=== PATIENT | female | born 1945 | race Caucasian/White ===

== ENCOUNTER → 2019-09-09 14:08 | Outpatient (REF) | payer MEDICARE, SELFPAY | LOC: ANHLAB 14:08 | PROVIDERS: PCP Internal Medicine; Visit Provider Nurse Practitioner | DX: D49.2 Neoplasm of unspecified behavior of bone, soft tissue, and skin (principal) | CPT/HCPCS: 88305; 88312 ==

== ENCOUNTER → 2019-10-14 13:57 | Outpatient (REF) | payer MEDICARE, SELFPAY | LOC: ANHLAB 13:57 | PROVIDERS: PCP Internal Medicine; Visit Provider Nurse Practitioner | DX: D49.2 Neoplasm of unspecified behavior of bone, soft tissue, and skin (principal) | CPT/HCPCS: 88305 ==

== ENCOUNTER 2025-04-14 13:56 | Outpatient (CLI) | payer MEDICARE, SELFPAY ==
--- NOTE | ~2025-04-14 | CT_ITS ---
EXAMINATION:CT diagnostic chest wo con DATE: 04/14/2025 14:17 INDICATION: Solitary pulmonary nodule. TECHNIQUE: Computed tomography (CT) of the chest was performed without intravenous contrast. Automated exposure control and iterative reconstruction technique were employed. The dose-length product (DLP) was 519.58 mGy-cm. COMPARISON: PET/CT 08/07/2019, chest CT 05/23/2019 FINDINGS: The lungs demonstrate mild atelectasis. A 16 mm calcified left lower lobe nodule and calcified left hilar lymph nodes are consistent with old granulomatous disease. There are a few scattered chronic pulmonary nodules measuring up to 5 mm, likely benign. There is mosaic attenuation in the lungs, likely small airways disease. No pleural effusion. The heart size is normal. There are coronary artery calcifications. No pericardial effusion. There is severe cervical spondylosis and mild thoracic spondylosis. There is a chronic compression fracture of L1. IMPRESSION: 1. Benign pulmonary nodules. Reviewed, dictated and finalized at location E.
--- OUTSIDE RECORDS SUMMARY | 2025-04-14 15:35 | XMS_ITS | Clinical Summary ---
Author Organization [facility] Address [address] [place] [address] Care Team Providers Care Commercial Manager Name Role Phone Waldemar Galo Primary Care Provider [phone] Allergies Active Allergy Reactions Criticality Noted Date Comments Insulin Degludec Swelling Medium 11/01/2017 Penicillins Hives Medium 11/01/2017 Medications citalopram (CeleXA) 10 mg tablet Take one by mouth one time per day 0 0 7 Active lisinopril (PRINIVIL,ZESTRI L) 20 mg tablet Take one by mouth one time per day 0 0 7 Active pen needle, diabetic (PEN NEEDLE) 31 gauge x 3/16 needle use 4 x a day (8mm pen needles) 400 3 9 Active blood glucose diagnostic (ONETOUCH ULTRA TEST) strip Take as directed 3-4 x daily 300 3 7 Active levothyroxine (SYNTHROID, LEVOTHROID) 125 mcg tablet Take one by mouth one time per day 90 3 0 Active lancets misc Take as directed 200 3 9 Active VITAMIN D2 50,000 unit capsule 0 9 Active insulin glargine (insulin glargine) 100 unit/mL vial for injection Active insulin regular (HumuLIN R, NovoLIN R) 100 unit/mL injection Inject under the skin 3 (three) times a day before meals Sliding scale Active magnesium oxide (MAG-OX) 400 mg (241.3 mg elemental magnesium) tabletIndication s:hypomagnesemia Take 1 tablet (400 mg total) by mouth daily Active melatonin tablet Take 1 tablet (3 mg total) by mouth nightly Active atorvastatin (LIPITOR) 40 mg tabletIndication s:Hyperlipidemia associated with type 2 diabetes mellitus (HCC) Take 1 tablet (40 mg total) by mouth daily 30 tablet 11 9 Active clopidogrel (PLAVIX) 75 mg tabletIndication s:Hypertension associated with diabetes (HCC) Take 1 tablet (75 mg total) by mouth daily 30 tablet 11 9 Active potassium chloride ER 20 mEq CR tablet Take 2 tablets (40 mEq total) by mouth daily 2 Active folic acid (FOLVITE) 1 mg tablet Take 1 tablet (1,000 mcg total) by mouth daily 2 Active carvediloL (COREG) 6.25 mg tablet TAKE 1 TABLET BY MOUTH TWICE DAILY WITH MEALS 180 tablet 4 Active isosorbide mononitrate ER (IMDUR) 30 mg 24 hr tabletIndication s:Pulmonary HTN (HCC),IBRAHIM (dyspnea on exertion) Take 1 tablet by mouth once daily 90 tablet 5 Active Active Problems Problem Noted Date Diagnosed Date Severe obesity 02/18/2025 Morbid (severe) obesity due to excess calories 0 03/14/2022 Bradycardia 09/09/2021 History of stroke 05/21/2019 Complex sleep apnea syndrome 12/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 PND (paroxysmal nocturnal dyspnea) 12/24/2018 Abnormal stress test 12/06/2018 Hypertension associated with diabetes 12/06/2018 Hyperlipidemia associated with type 2 diabetes m ellitus 12/06/2018 IBRAHIM (dyspnea on exertion) 12/06/2018 Pulmonary HTN 12/06/2018 Atypical chest pain 12/06/2018 Nonrheumatic aortic valve stenosis 12/06/2018 Bilateral carotid bruits 12/06/2018 Abnormal mammography 12/04/2018 Hypothyroidism 12/20/2013 Overview (11/08/2016): HYPOTHYROIDISM NOS Hypertension 12/20/2013 Overview (11/09/2016): HYPERTENSION NOS Pure hypercholesterolemia 12/20/2013 Overview (11/09/2016): PURE HYPERCHOLESTEROLEM Type 2 diabetes mellitus 12/20/2013 Overview (11/10/2016): DMII WO CMP UNCNTRLD Morbid obesity 12/20/2013 Overview (11/10/2016): MORBID OBESITY Resolved Problems Problem Noted Date Diagnosed Date Resolved Date Body mass index 40.0-44.9, adult ([facility]) 03/14/2022 04/18/2023 Encounters Date Type Department Care Team Description 04/08/2025 Telephone [facility] Medicine Ophthalmology [facility] [place] [address] Jennie Ameliauriel JASSO - Appointment/Referral 03/27/[address] [facility] Cardiology [address] [facility] [address] [place] [address] Olayinka Rodriguez MD 03/26/2025 Results Follow-Up [facility] Cardiology [address] [facility] [address] [place] [phone] Olayinka Rodriguez MD NM Myocardial Amyloidosis Imaging SPECT/CT 03/25/2025 12:28 PM CDT - 03/25/2025 11:59 PM CDT Hospital Encounter [facility] Radiology [address] [place] [address] Discharge Disposition: Discharge to home or self care 03/25/2025 12:28 PM CDT - 03/25/2025 11:59 PM CDT Hospital Encounter [facility] Radiology 1 [place] [address] Abnormal echocardiogram Discharge Disposition: Discharge to home or self care 03/17/[address] [facility] Cardiology [address] [place] [address] Olayinka Rodriguez MD 03/16/2025 Results Follow-Up [facility] Cardiology at [address] [place] [address] Olayinka Rodriguez MD Transthoracic Echo (TTE) Complete W Doppler/CF 03/11/2025 11:15 AM CDT Ancillary Procedure [facility] Cardiology [address] [facility] [address] [place] [phone] Hypertension associated with diabetes (HCC); Nonrheumatic aortic valve stenosis; Pulmonary HTN (HCC) 02/18/2025 1:45 PM CDT Office Visit [facility] Cardiology [address] [facility] [address] [place] [address] Olayinka Rodriguez MD Hyperlipidemia associated with type 2 diabetes mellitus (HCC) (Primary Dx); Hypertension associated with diabetes (HCC); Nonrheumatic aortic valve stenosis; Pulmonary HTN (HCC); Severe obesity (HCC) from Last 3 Months Surgical History Surgery Date Site/Laterality Comments CATARACT EXTRACTION Cataract extraction Medical History Medical History Date Comments Hypertension Hypertension Diabetes mellitus (HCC) Diabetes Hyperlipidemia Hyperlipidemia Hx Other Medical hysterectomy; C omments: [facility] 08/25/2016 - Malignant neoplasm of uterus (HCC) Cancer, uterine; Comments: [facility] 08/25/2016 - Disorder of thyroid Thyroid dise ase Family History Medical History Relation Name Comments Diabetes Father Diabetes mellit us; Hypertension Father Hypertension; Diabetes Mother Diabetes mellit us; Hypertension Mother Hypertension; Stroke Mother Stroke; Diabetes type II Other 1 Family hist ory of Diabetes -Type II; Diabetes Other 2 sibling Diabetes mellit us; Hypertension Other 2 sibling Hypertension; Migraines Other 2 sibling Migraines; Relation Name Status Comments Father Mother Other 1 Other 2 sibling Social History Tobacco Use Types Packs/Day Years Used Date Smoking Tobacco: Former Cigarettes Q uit: 12/07/1971 Smokeless Tobacco: Never Alcohol Use Standard Drinks/Week Comments No 0 (1 standard drink = 0.6 oz pur e alcohol) Comments No Sex and Gender Information Value Date Recorded Sex Assigned at Not on file 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 Gender Identity Not on file Sexual Orientation Not on file Obstetrics History Last Filed Vital Signs Vital Sign Reading Time Taken Comments Blood Pressure 139/70 02/18/2025 2:22 PM CDT Pulse 81 02/18/2025 1:27 PM CDT Temperature - - Respiratory Rate - - Oxygen Saturation 93% 02/18/2025 1:27 PM CDT Inhaled Oxygen Concentration - - Weight 100.7 kg (222 lb) 02/18/2025 1:27 PM CDT Height 165.1 cm (5' 5) 02/18/2025 1:27 PM CDT Body Mass Index 36.94 02/18/2025 1:27 PM CDT Plan of Treatment Health Maintenance Due Date Last Done Comments Albumin Creatinine Ratio, Urine 1945 Depression Screening 1945 Fall Risk Assessment 1945 Hemoglobin A1C 1945 Hepatitis C Screening 1945 Osteoporosis Screening-Bone Density Scan 1945 eGFR 1945 Dilated Eye Exam 1945 Foot Exam 1945 DTaP/Tdap/Td Vaccine (1 - Tdap) 1958 Hepatitis B Screening 1965 Pneumococcal vaccine 65+ (1 of 2 - PCV) 1966 Zoster Vaccine (1 of 2) 1997 Well Visit 65+ 2012 Lipid Panel 11/02/2023 11/01/2022, 08/0 04/2022, 05/05/2021, Additional history exists Influenza Vaccine (#1) 2025 Breast Cancer Screening-Mammogram Discontinued 12/04/2018, 11/07/2017, 02/28/2017 Procedures Procedure Name Priority Date/Time Associated Diagnosis Comments NM MYOCARDIAL AMYLOIDOSIS IMAGING SPECT/CT Schedule Routine, Read Routine (OP Routine) 03/25/2025 4:14 PM CDT Abnormal echocardiogram TRANSTHORACIC ECHO (TTE) COMPLETE W DOPPLER/CF W CONTRAST Routine 03/11/2025 12:57 PM CDT Hypertension associated with diabetes (HCC) Nonrheumatic aortic valve stenosis Pulmonary HTN (HCC) LIPID PANEL Routine 11/01/2022 4:45 PM CDT DIAGNOSTIC MAMMOGRAM BILATERAL W ADRIEL Schedule Routine, Read Routine (OP Routine) 12/04/2018 11:33 AM CDT Other abnormal and inconclusive findings on diagnostic imaging of breast History of abnormal mammogram from Last 3 Months or Most Recently Relevant to Health Maintenance Results * NM Myocardial Amyloidosis Imaging SPECT/CT (03/25/2025 4:14 PM CDT) Anatomical Region Laterality Modality N/A Nuclear Medicine 03/25/2025 4:32 PM CDT Impressions 03/25/2025 4:45 PM CDT 1. This study demonstrates no abnormal myocardial uptake of Tc-99m pyrophosphate (Grade 0). See comments below. 2. Subpleural 12 mm pulmonary ground glass opacity in the left lower lobe. Further evaluation with dedicated chest CT according to Fleischner criteria is recommended. GENERAL COMMENTS CONCERNING THE INTERPRETATION OF TC-99M PYROPHOSPHATE IMAGING FOR DIAGNOSIS OF CARDIAC AMYLOIDOSIS A negative (Grade 0) Tc-99m pyrophosphate scan effectively excludes transthyretin-related cardiac amyloidosis (ATTR), but does not exclude light chain (AL) amyloidosis. If cardiac amyloidosis is suspected despite a negative scan, assessment of monoclonal proteins in serum or urine should be performed, if not already done, to assess for AL amyloidosis. A clearly positive (Grade 2 or 3) Tc-99m pyrophosphate scan can reflect either ATTR or AL amyloidosis, but has a high positive predictive value for ATTR amyloidosis if serum or urine monoclonal proteins are negative. A mildly positive (Grade 1) Tc-99m pyrophosphate scan can indicate either an early stage of ATTR or AL amyloidosis and further distinction requires assessment of monoclonal proteins in serum or urine. For further information, see the ASNC/AHA/ASE/EANM/HFSA/JESUS/SCMR/SNMMI Expert Consensus Recommendations for Multimodality Imaging in Cardiac Amyloidosis (https://pubmed.ncbi.nlm.nih.gov/55942461/ and https://pubmed.ncbi.nlm.nih.gov/11275665/). Dr. White also participated in the interpretation of this study. Dictated by: Marysol Harley M.D. The radiology attending physician has personally reviewed this study, and had reviewed and/or edited this written report and agrees with it. Electronically signed by: Leonard Daigle M.D. Narrative 03/25/2025 4:45 PM CDT EXAMINATION: MYOCARDIAL AMYLOID SCINTIGRAPHY (PLANAR/SPECT-CT) DATE OF STUDY: 03/25/2025 RADIOPHARMACEUTICAL: 33.5 mCi Tc-99m pyrophosphate (PYP) i.v. HISTORY: 79-year-old female with a past medical history of hypertension, diabetes, with recent echocardiogram with abnormal strain (apical sparing pattern), raising concern for cardiac amyloidosis. COMPARISON: None FINDINGS: Approximately 2.5 hours following administration of Tc-99m pyrophosphate, a planar image of the chest and upper abdomen was performed in the anterior projection, followed by SPECT/CT imaging of the chest. (The low-dose noncontrast CT images are used for attenuation correction and for fusion with emission SPECT images to allow for anatomical localization of SPECT findings and to better distinguish blood pool activity from myocardial uptake of the tracer.) On the planar image, tracer uptake within the region of the myocardium appears to be absent (grade 0). However, additional SPECT/CT images were subsequently obtained to better distinguish between blood pool activity and myocardial uptake, and to better detect small areas of abnormal uptake. After review of SPECT/CT images, myocardial uptake is assessed to be 0 on a 0-3 scale. Incidental findings on the low-dose CT images:Limited image quality. Subpleural 12 mm pulmonary ground glass opacity in the left lower lobe. No appreciable CAC. Mild calcifications of the ascending aorta, normal breast tissue, spondylosis, Procedure Note Leonard Daigle MD - 03/25/2025 EXAMINATION: MYOCARDIAL AMYLOID SCINTIGRAPHY (PLANAR/SPECT-CT) DATE OF STUDY: 03/25/2025 RADIOPHARMACEUTICAL: 33.5 mCi Tc-99m pyrophosphate (PYP) i.v. HISTORY: 79-year-old female with a past medical history of hypertension, diabetes, with recent echocardiogram with abnormal strain (apical sparing pattern), raising concern for cardiac amyloidosis. COMPARISON: None FINDINGS: Approximately 2.5 hours following administration of Tc-99m pyrophosphate, a planar image of the chest and upper abdomen was performed in the anterior projection, followed by SPECT/CT imaging of the chest. (The low-dose noncontrast CT images are used for attenuation correction and for fusion with emission SPECT images to allow for anatomical localization of SPECT findings and to better distinguish blood pool activity from myocardial uptake of the tracer.) On the planar image, tracer uptake within the region of the myocardium appears to be absent (grade 0). However, additional SPECT/CT images were subsequently obtained to better distinguish between blood pool activity and myocardial uptake, and to better detect small areas of abnormal uptake. After review of SPECT/CT images, myocardial uptake is assessed to be 0 on a 0-3 scale. Incidental findings on the low-dose CT images:Limited image quality. Subpleural 12 mm pulmonary ground glass opacity in the left lower lobe. No appreciable CAC. Mild calcifications of the ascending aorta, normal breast tissue, spondylosis, IMPRESSION: 1. This study demonstrates no abnormal myocardial uptake of Tc-99m pyrophosphate (Grade 0). See comments below. 2. Subpleural 12 mm pulmonary ground glass opacity in the left lower lobe. Further evaluation with dedicated chest CT according to Fleischner criteria is recommended. GENERAL COMMENTS CONCERNING THE INTERPRETATION OF TC-99M PYROPHOSPHATE IMAGING FOR DIAGNOSIS OF CARDIAC AMYLOIDOSIS A negative (Grade 0) Tc-99m pyrophosphate scan effectively excludes transthyretin-related cardiac amyloidosis (ATTR), but does not exclude light chain (AL) amyloidosis. If cardiac amyloidosis is suspected despite a negative scan, assessment of monoclonal proteins in serum or urine should be performed, if not already done, to assess for AL amyloidosis. A clearly positive (Grade 2 or 3) Tc-99m pyrophosphate scan can reflect either ATTR or AL amyloidosis, but has a high positive predictive value for ATTR amyloidosis if serum or urine monoclonal proteins are negative. A mildly positive (Grade 1) Tc-99m pyrophosphate scan can indicate either an early stage of ATTR or AL amyloidosis and further distinction requires assessment of monoclonal proteins in serum or urine. For further information, see the ASNC/AHA/ASE/EANM/HFSA/JESUS/SCMR/SNMMI Expert Consensus Recommendations for Multimodality Imaging in Cardiac Amyloidosis (https://pubmed.ncbi.nlm.nih.gov/08921870/ and https://pubmed.ncbi.nlm.nih.gov/39582798/). Dr. White also participated in the interpretation of this study. Dictated by: Marysol Harley M.D. The radiology attending physician has personally reviewed this study, and had reviewed and/or edited this written report and agrees with it. Electronically signed by: Leonard Daigle M.D. us Olayinka Rodriguez MD IMG NM PROCEDURES Final R esult * TRANSTHORACIC ECHO (TTE) COMPLETE W DOPPLER/CF W CONTRAST (03/11/2025 12:57 PM CDT) Estimated EF 65 % CONS SCIMAGE EF Mod BP 61 % CONS SCIMAGE Anatomical Region Laterality Modality Ultrasound 03/11/2025 11:4 7 AM CDT Narrative 03/11/2025 4:57 PM CDT [facility] [address], [place] [address] [address] [facility] [address], [place] [address] P:[phone] P:[phone] Echocardiographic Report Patient Name: WILVER TURK A : 1945 Study Date: 03/11/2025 11:47:18 AM Gender: F Leadership Development Consultant: Sailaja Keane)(CT), [facility] Location: [facility] Provider: OLAYINKA RODRIGUEZ Height(Cm): 165 BSA: 2.15 Weight(Kg): 100.7 Heart Rate: 64 BP: 139 / 70 Quality: Good Order Provider: OLAYINKA RODRIGUEZ PROCEDURES: Echocardiographic Report: Transthoracic echocardiogram with complete 2D, M-Mode, color Doppler examination and Definity contrast. With Strain Analysis. INDICATIONS: E11.59 Type 2 diabetes mellitus with other circulatory complications, I15.2 Hypertension secondary to endocrine disorders, I35.0 Nonrheumatic aortic (valve) stenosis, and I27.20 Pulmonary hypertension, unspecified. MEASUREMENTS: 2D/MM Value Range Doppler Value Range EF Mod BP 61 % [ 54 - 74 ] TADEO Vmax 2.17 cm2 [ 2.00 - 4.00 ] Estimated EF 65 % AV Mean PG 9 mmHg LV GLS -7.29 % AV Peak Stanley 2.17 m/s [ 1.00 - 1.70 ] LVIDd 2D 5.27 cm [ 3.80 - 5.20 ] AV Peak PG 19 mmHg LVIDs 2D 3.60 cm [ 2.20 - 3.50 ] AV VTI 35.25 cm LVPWd 2D 0.97 cm [ 0.60 - 0.90 ] LVOT Diam 2.04 cm [ 1.70 - 2.10 ] IVSd 2D 1.06 cm [ 0.60 - 0.90 ] LVOT Peak Stanley 1.45 m/s [ 0.70 - 1.10 ] AoR Diam 2D 3.04 cm [ 2.70 - 3.70 ] LVOT VTI 33.22 cm LA Volume 34.93 ml [ 22.00 - 52.00 ] MV E Peak Stanley 0.85 m/s [ 0.60 - 1.30 ] LA Volume Index 16 cc/m2 [ 16 - 28 ] MV A Peak Stanley 0.82 m/s [ 1.00 - 1.20 ] RA Volume 26.46 ml MV Decel Time 228 msec [ 104 - 258 ] PV Peak Stanley 1.53 m/s [ 0.40 - 0.80 ] RV S` 7.60 mmHg Lateral E` 0.09 m/s [ 0.10 - 0.15 ] Septal E` 0.06 m/s [ 0.08 - 0.15 ] E` 0.07 m/s E/E` 12 Tapse 1.49 cm [ 1.71 - 5.00 ] 2D/MM Value Range Doppler Value Range - FINDINGS: Interpretation Site: Exam was interpreted at [facility]. Left Ventricle: Normal left ventricular systolic function. No focal wall motion abnormalities. Normal left ventricular size. Definity contrast agent used to visually enhance endocardial wall motion and contractility. Lot Number: [id number]. Mild concentric left ventricular hypertrophy. Diastolic dysfunction is present. Ejection fraction is measured at 61 %. Ejection Fraction is visually estimated to be 65 %. Global Longitudinal Strain is -7 %. GLS is abnormal. Apical Sparing Pattern seen with Strain Imaging, consider Cardiac Amyloid. Right Ventricle: Normal right ventricular size. Normal right ventricular systolic function. Left Atrium: There is mild enlargement of left atrium. Right Atrium: The right atrium is normal in size. Atrial Septum: Normal atrial septum. Mitral Valve: Normal appearance of the mitral valve. Mild mitral valve regurgitation. There is no hemodynamically significant mitral stenosis by Doppler. Aortic Valve: Mild aortic stenosis. Peak Velocity of 2.20 m/s. Mean gradient of 9.0 mmHg. Valve area of 2.1 cm2. Aortic cusps appear mildly calcified. Trileaflet aortic valve. Mild aortic valve regurgitation. Tricuspid Valve: Normal appearance of the tricuspid valve. Right ventricular systolic pressure could not be estimated due to inadequate visualization of the tricuspid regurgitation jet. Trivial regurgitation in the tricuspid valve. Pulmonic Valve: Normal appearance of the pulmonic valve. No pulmonic stenosis. Trivial regurgitation in the pulmonic valve. Pericardium: Normal pericardium with no significant pericardial effusion. Aorta: Normal aortic root. IVC: Normal size and normal respiratory collapse consistent with normal right atrial pressure (<5 mmHg). CONCLUSIONS: Normal left ventricular systolic function. No focal wall motion abnormalities. Normal left ventricular size. Definity contrast agent used to visually enhance endocardial wall motion and contractility. Lot Number: [id number]. Mild concentric left ventricular hypertrophy. Diastolic dysfunction is present. Ejection fraction is measured at 61 %. Ejection Fraction is visually estimated to be 65 %. Global Longitudinal Strain is -7 %. GLS is abnormal. Apical Sparing Pattern seen with Strain Imaging, consider Cardiac Amyloid. There is mild enlargement of left atrium. Mild mitral valve regurgitation. Mild aortic stenosis. Peak Velocity of 2.20 m/s. Mean gradient of 9.0 mmHg. Valve area of 2.1 cm2. Aortic cusps appear mildly calcified. Trileaflet aortic valve. Mild aortic valve regurgitation. Atrial fibrillation. Electronically Signed By: Olayinka Rodriguez MD 03/11/2025 4:57:11 PM CDT Procedure Note Olayinka Rodriguez MD - 03/11/2025 [facility] [address] [facility] [address], [place] [address] [address] [facility] [address] [place], [place] [address] [phone] P:[phone] Echocardiographic Report Patient Name: WILVER TURK A : 1945 Study Date: 03/11/2025 11:47:18 AM Gender: F Leadership Development Consultant: Sailaja Keane)(CT), [facility] Location: [place] Ref Provider: OLAYINKA RODRIGUEZ Height(Cm): 165 BSA: 2.15 Weight(Kg): 100.7 Heart Rate: 64 BP: 139 / 70 Quality: Good Order Provider: OLAYINKA RODRIGUEZ PROCEDURES: Echocardiographic Report: Transthoracic echocardiogram with complete 2D, M-Mode, color Dopplerexamination and Definity contrast. With Strain Analysis. INDICATIONS: E11.59 Type 2 diabetes mellitus with other circulatory complications,I15.2 Hypertension secondary to endocrine disorders, I35.0 Nonrheumatic aortic (valve)stenosis, and I27.20 Pulmonary hypertension, unspecified. MEASUREMENTS: 2D/MM Value Range Doppler ValueRange EF Mod BP 61 % [ 54 - 74 ] TADEO Vmax 2.17cm2 [ 2.00 - 4.00 ] Estimated EF 65 % AV Mean PG 9mmHg LV GLS -7.29 % AV Peak Stanley 2.17m/s [ 1.00 - 1.70 ] LVIDd 2D 5.27 cm [ 3.80 - 5.20 ] AV Peak PG 19mmHg LVIDs 2D 3.60 cm [ 2.20 - 3.50 ] AV VTI 35.25cm LVPWd 2D 0.97 cm [ 0.60 - 0.90 ] LVOT Diam 2.04cm [ 1.70 - 2.10 ] IVSd 2D 1.06 cm [ 0.60 - 0.90 ] LVOT Peak Stanley 1.45m/s [ 0.70 - 1.10 ] AoR Diam 2D 3.04 cm [ 2.70 - 3.70 ] LVOT VTI 33.22cm LA Volume 34.93 ml [ 22.00 - 52.00 ] MV E Peak Stanley 0.85m/s [ 0.60 - 1.30 ] LA Volume Index 16 cc/m2 [ 16 - 28 ] MV A Peak Stanley 0.82m/s [ 1.00 - 1.20 ] RA Volume 26.46 ml MV Decel Time 228msec [ 104 - 258 ] PV Peak Stanley 1.53 m/s [ 0.40 - 0.80 ] RV S` 7.60 mmHg Lateral E` 0.09 m/s [ 0.10 - 0.15 ] Septal E` 0.06 m/s [ 0.08 - 0.15 ] E` 0.07 m/s E/E` 12 Tapse 1.49 cm [ 1.71 - 5.00 ] 2D/MM Value Range Doppler ValueRange - FINDINGS: Interpretation Site: Exam was interpreted at [facility]. Left Ventricle: Normal left ventricular systolic function. No focal wall motionabnormalities. Normal left ventricular size. Definity contrast agent used to visually enhanceendocardial wall motion and contractility. Lot Number: [id number]. Mild concentric leftventricular hypertrophy. Diastolic dysfunction is present. Ejection fraction is measured at 61 %.Ejection Fraction is visually estimated to be 65 %. Global Longitudinal Strain is-7 %. GLS is abnormal. Apical Sparing Pattern seen with Strain Imaging, considerCardiac Amyloid. Right Ventricle: Normal right ventricular size. Normal right ventricular systolicfunction. Left Atrium: There is mild enlargement of left atrium. Right Atrium: The right atrium is normal in size. Atrial Septum: Normal atrial septum. Mitral Valve: Normal appearance of the mitral valve. Mild mitral valve regurgitation.There is no hemodynamically significant mitral stenosis by Doppler. Aortic Valve: Mild aortic stenosis. Peak Velocity of 2.20 m/s. Mean gradient of 9.0mmHg. Valve area of 2.1 cm2. Aortic cusps appear mildly calcified. Trileaflet aortic valve.Mild aortic valve regurgitation. Tricuspid Valve: Normal appearance of the tricuspid valve. Right ventricular systolicpressure could not be estimated due to inadequate visualization of the tricuspidregurgitation jet. Trivial regurgitation in the tricuspid valve. Pulmonic Valve: Normal appearance of the pulmonic valve. No pulmonic stenosis. Trivialregurgitation in the pulmonic valve. Pericardium: Normal pericardium with no significant pericardial effusion. Aorta: Normal aortic root. IVC: Normal size and normal respiratory collapse consistent with normal rightatrial pressure (<5 mmHg). CONCLUSIONS: Normal left ventricular systolic function. No focal wall motionabnormalities. Normal left ventricular size. Definity contrast agent used to visually enhanceendocardial wall motion and contractility. Lot Number: [id number]. Mild concentric leftventricular hypertrophy. Diastolic dysfunction is present. Ejection fraction is measured at 61 %.Ejection Fraction is visually estimated to be 65 %. Global Longitudinal Strain is-7 %. GLS is abnormal. Apical Sparing Pattern seen with Strain Imaging, considerCardiac Amyloid. There is mild enlargement of left atrium. Mild mitral valve regurgitation. Mild aortic stenosis. Peak Velocity of 2.20 m/s. Mean gradient of 9.0mmHg. Valve area of 2.1 cm2. Aortic cusps appear mildly calcified. Trileaflet aortic valve.Mild aortic valve regurgitation. Atrial fibrillation. Electronically Signed By: Olayinka Rodriguez MD 03/11/2025 4:57:11 PM CDT Olayinka Rodriguez MD CV ECHO PROCEDURES Final Result * Lipid panel (11/01/2022 4:45 PM CDT) SCRIBED Cholesterol, Total 142 <200 [facility] HDL 39 >40 [facility] S[facility] LDL 78 <100 [facility] S[facility] Triglycerides 156 <150 [facility] Blood Historical Provider LAB BLOOD ORDERABLES Edit ed Result - Final [facility] * Diagnostic Mammogram Bilateral W Adriel (12/04/2018 11:33 AM CDT) Anatomical Region Laterality Modality Breast Bilateral Mammography 12/04/2018 1:17 PM CDT Impressions 12/04/2018 2:20 PM CDT Benign right breast calcifications. The patient may resume annual screening mammography. OVERALL FINAL ASSESSMENT: BI-RADS Category 2: Benign. Recommend return to annual screening mammography in 1 year. Dictated by: Lucy Mix M.D. The radiology attending physician has personally reviewed this study, and had reviewed and/or edited this written report and agrees with it. Electronically signed by: Brenda Osman M.D. Narrative 12/04/2018 2:20 PM CDT EXAMINATION: BILATERAL DIGITAL DIAGNOSTIC MAMMOGRAM INCLUDING CAD AND BILATERAL DIGITAL BREAST TOMOSYNTHESIS HISTORY: 73-year-old woman presents for short-term follow-up of likely benign breast calcifications. COMPARISON: Multiple prior mammograms dating back to 08/04/2016 TECHNIQUE: Full field digital mammographic views of BOTH breasts were performed, including computer aided detection (CAD) and BILATERAL digital breast tomosynthesis (DBT). BREAST PARENCHYMAL COMPOSITION: There are scattered areas of fibroglandular density. MAMMOGRAM FINDINGS: There is no mass, calcification or architectural distortion suggestive of malignancy in the LEFT breast. There is a stable 3 mm group of coarse heterogeneous calcifications in the posterior central right breast. No new suspicious abnormality seen in the right breast. Procedure Note Brenda Osman MD - 12/04/2018 EXAMINATION: BILATERAL DIGITAL DIAGNOSTIC MAMMOGRAM INCLUDING CAD AND BILATERAL DIGITAL BREAST TOMOSYNTHESIS HISTORY: 73-year-old woman presents for short-term follow-up of likely benign breast calcifications. COMPARISON: Multiple prior mammograms dating back to 08/04/2016 TECHNIQUE: Full field digital mammographic views of BOTH breasts were performed, including computer aided detection (CAD) and BILATERAL digital breast tomosynthesis (DBT). BREAST PARENCHYMAL COMPOSITION: There are scattered areas of fibroglandular density. MAMMOGRAM FINDINGS: There is no mass, calcification or architectural distortion suggestive of malignancy in the LEFT breast. There is a stable 3 mm group of coarse heterogeneous calcifications in the posterior central right breast. No new suspicious abnormality seen in the right breast. IMPRESSION: Benign right breast calcifications. The patient may resume annual screening mammography. OVERALL FINAL ASSESSMENT: BI-RADS Category 2: Benign. Recommend return to annual screening mammography in 1 year. Dictated by: Lucy Mix M.D. The radiology attending physician has personally reviewed this study, and had reviewed and/or edited this written report and agrees with it. Electronically signed by: Brenda Osman M.D. Yue Hines STATISTICIAN IMG MAMMO PROCEDURES Final R esult from Last 3 Months or Most Recently Relevant to Health Maintenance Insurance [id number] AETNA MEDICARE GOLD [id number] AETNA MEDICARE GOLD AETNA MEDICARE GOLD [facility] MEDICARE Address: [facility] [id number] [place] [id number] Care Teams Commercial Manager Relationship Specialty Start Date End Date Waldemar Galo DO PCP - General Internal Medicine 02/18/25
--- OUTSIDE RECORDS SUMMARY | 2025-04-14 15:35 | XMS_ITS | Clinical Summary ---
Author Organization [facility] Address [address] [place] [address] Care Team Providers Care Informatica Mdm Developer Name Role Phone Mohsen Muse MD Primary Care Provider Allergies Active Allergy Reactions Criticality Noted Date Comments Insulin Glargine Unknown 05/30/2018 Penicillins Hives 11/01/2017 Insulin Degludec Swelling 11/01/2017 Medications atenolol 25 MG tablet Take 25 mg by mouth nightly at bedtime. 0 05/07/20 19 Active atorvastatin 40 MG tablet Take 40 mg by mouth every morning. FOR 14 DAYS 0 05/07/20 19 Active furosemide 20 MG tablet Take 20 mg by mouth nightly at bedtime. 0 05/07/20 19 Active isosorbide mononitrate ER 30 MG 24 hr tablet Take 30 mg by mouth daily. 0 05/07/20 19 Active lisinopril 20 MG tablet Take 20 mg by mouth nightly at bedtime. 0 05/07/20 19 Active citalopram 10 MG tablet Take 10 mg by mouth nightly at bedtime. 0 05/07/20 19 Active lorazepam 0.5 MG tablet TAKE 1 2 (ONE HALF) TABLET BY MOUTH ONCE DAILY NEEDED FOR ANXIETY 0 05/07/20 19 Active OLANZapine 5 MG tablet TAKE 1 TABLET BY MOUTH ONCE DAILY AT BEDTIME NEEDED FOR ANXIETY 0 05/07/20 19 Active NOVOLIN N RELION 100 UNIT/ML injection INJECT 10 UNITS SUBCUTANEOUSLY EVERY 12 HOURS 0 05/07/20 19 Active NOVOLIN R RELION 100 UNIT/ML injection INJECT 25 UNITS SUBCUTANEOUSLY BEFORE MEALS DIRECTED 0 05/07/20 19 Active levothyroxine 125 MCG tablet Take 125 mcg by mouth every morning. FOR 14 DAYS 0 05/07/20 19 Active clopidogrel 75 MG tablet Take 75 mg by mouth every morning. FOR 14 DAYS 0 05/07/20 19 Active enoxaparin 40 MG/0.4ML Solution INJECT 1 SYRINGE (40 MG) SUBCUTANEOUSLY ONCE DAILY 0 05/07/20 19 Active vitamin D2, ergocalciferol, 86384 UNITS capsule 0 10/25/19 19 Active magnesium oxide 400 (241.3 Mg) MG tablet Take 400 mg by mouth daily. 0 05/07/20 19 Active potassium chloride CR 20 MEQ Tab CR tablet TAKE 2 TABLETS BY MOUTH ONCE DAILY AT 8AM 0 05/07/20 19 Active Glucose Blood (ONE TOUCH ULTRA TEST STRIPS) test strip Take as directed 3-4 x daily 04/17/20 07 Active Lancets Misc Take as directed 09/08/19 09 Active Multiple Vitamins-Minera ls (MULTIVITAMIN ADULT OR) Take according to [id number] package directions 04/17/20 07 Active Insulin Pen Needle (PEN NEEDLES) 31G X 8 MM Misc use 4 x a day (8mm pen needles) 04/27/20 09 Active sulfamethoxazol e-trimethoprim 800-160 MG tablet Take 1 tablet by mouth every 12 (twelve) hours. 07/07/20 19 Active zolpidem 5 MG tablet TAKE TO SLEEP STUDY 07/09/20 19 Active Active Problems Problem Noted Date Diagnosed Date History of stroke 05/21/2019 Complex sleep apnea syndrome 12/24/2018 PND (paroxysmal nocturnal dyspnea) 12/24/2018 Abnormal stress test 12/06/2018 Atypical chest pain 12/06/2018 Bilateral carotid bruits 12/06/2018 IBRAHIM (dyspnea on exertion) 12/06/2018 Hyperlipidemia associated wi th type 2 diabetes mellitus ([facility]) 12/06/2018 Morbid obesity with body mass index of 45.0-49.9 in adult 12/06/2018 Nonrheumatic aortic valve stenosis 12/06/2018 Pulmonary HTN ([facility]) 12/06/2018 Abnormal mammography 12/04/2018 Vitamin D deficiency 04/22/2018 Infection due to yeast 04/02/2018 Hypertension associated with diabetes ([facility]) 11/01/2017 Thyroid disease 11/01/2017 Type 2 diabetes mellitus ([facility]) 11/01 Morbid obesity 12/20/2013 Overview (07/25/2019): Overview: MORBID OBESITY Pure hypercholesterolemia 12/20/2013 Overview (07/25/2019): Overview: PURE HYPERCHOLESTEROLEM Hypertension 12/20/2013 Overview (07/25/2019): Overview: HYPERTENSION NOS Hypothyroidism 12/20/2013 Overview (07/25/2019): Overview: HYPOTHYROIDISM NOS Type 2 diabetes mellitus wit h other circulatory complication, with long-term current use of insulin ([facility]) 12/20/2013 Overview (07/25/2019): Overview: DMII WO CMP UNCNTRLD Family History Medical History Relation Comments Diabetes Brother Diabetes Father Diabetes Mother Thyroid Sister Relation Status Comments Brother Father Mother Sister Social History Tobacco Use Types Packs/Day Years Used Date Smoking Tobacco: Former Cigarettes Cigars Smokeless Tobacco: Never Alcohol Use Standard Drinks/Week Comments No 0 (1 standard drink = 0.6 oz pur e alcohol) AUDIT-C Answer Date Recorded Frequency of Alcohol Consumption Never 07/25/2019 Average Number of Drinks Not on file 019 Frequency of Binge Drinking Not on file 07/07 Comments Unknown Sex and Gender Information Value Date Recorded Sex Assigned at Not on file Legal Sex Female 7:29 PM CDT Gender Identity Not on file Sexual Orientation Not on file Last Filed Vital Signs Vital Sign Reading Time Taken Comments Blood Pressure 124/60 07/25/2019 8:13 AM PHYSICIAN PRACTICE COORDINATOR Pulse 50 07/25/2019 8:13 AM PHYSICIAN PRACTICE COORDINATOR Temperature 36.4 C (97.6 F) 07/25/2019 8:13 AM PHYSICIAN PRACTICE COORDINATOR Respiratory Rate 20 07/25/2019 8:13 AM PHYSICIAN PRACTICE COORDINATOR Oxygen Saturation 97% 07/25/2019 8:13 AM PHYSICIAN PRACTICE COORDINATOR Inhaled Oxygen Concentration - - Weight 135.4 kg (298 lb 8 oz) 05/30/2018 9:21 AM CDT Height 165.1 cm (5' 5) 05/30/2018 9:21 AM CDT Body Mass Index 49.67 05/30/2018 9:21 AM CDT Plan of Treatment Health Maintenance Due Date Last Done Comments Kidney Health Evaluation 1945 Diabetes: Retinopathy Eye Exam 1965 Hepatitis C 1965 DTaP, Tdap and Td Vaccines (1 - Tdap) 1966 Pneumococcal Vaccine: 50+ Years (1 of 2 - PCV) 1966 Zoster Vaccines (1 of 2) 1997 Annual Medicare Wellness Visit 2012 Dexa Scan (General) 2012 Hemoglobin A1C 01/24/2020 07/25/2019, 07/2 10/2018, 05/30/2018, Additional history exists Lipid Panel 09/02/2020 09/02/2019 RSV Immunization or 60+ Years (1 - 1-dose 75+ series) 2022 COVID-19 Vaccine ( - season) 2025 Meningococcal B Vaccine Aged Out No l onger eligible based on patient's age to complete this topic Meningococcal Vaccine Aged Out No dakota naga eligible based on patient's age to complete this topic RSV Immunizations Under 20 Months Aged Out No longer eligible based on patient's age to complete this topic Procedures Procedure Name Priority Date/Time Associated Diagnosis Comments LIPID PANEL Routine 09/02/2019 11:58 AM PHYSICIAN PRACTICE COORDINATOR Type 2 diabetes mellitus with other circulatory complication, with long-term current use of insulin HEMOGLOBIN, GLYCOSYLATED Routine 07/25/2019 Type 2 diabetes mellitus with microalbuminuria, with long-term current use of insulin from Last 3 Months or Most Recently Relevant to Health Maintenance Results * (ABNORMAL) LIPID PANEL (09/02/2019 11:58 AM PHYSICIAN PRACTICE COORDINATOR) CHOLESTEROL 117 <200 mg/dL [facility] HDL 37(L) >50 mg/dL [facility] TRIGLYCERIDES 124 <150 mg/dL [facility] LDL (CALCULATED) 59 mg/dL (calc) [facility] Comment: Reference range: <100 Desirable range <100 mg/dL for primary prevention; <70 mg/dL for patients with CHD or diabetic patients with > or = 2 CHD risk factors. LDL-C is now calculated using the Daniela calculation, which is a validated novel method providing better accuracy than the Friedewald equation in the estimation of LDL-C. Darryn SANFORD et al. PETTY. 2013;310(19): 8105-6738 (http://education.[employer].Amartus/faq/DDD119) CHOL/HDL RATIO 3.2 <5.0 (calc) [facility] NON HDL CHOLESTEROL 80 <130 mg/dL (calc) [facility] Comment: For patients with diabetes plus 1 major ASCVD risk factor, treating to a non-HDL-C goal of <100 mg/dL (LDL-C of <70 mg/dL) is considered a therapeutic option. 09/02/2019 11:5 8 AM PHYSICIAN PRACTICE COORDINATOR 09/02/2019 11:58 AM PHYSICIAN PRACTICE COORDINATOR Narrative [facility] - 09/03/2019 9:59 AM PHYSICIAN PRACTICE COORDINATOR COLLECTION KIT GIVEN TO PATIENT. PATIENT ADVISED TO RETURN. Resulting Agency Comment Performing Organization Information: Site ID: [place] Name: [facility] Address: [address] [place], [place] [address] [address] Director: Darian Singer D.O., MPH Sy Bosch MD LABORATORY Final Result [facility] * HEMOGLOBIN, GLYCOSYLATED (07/25/2019) HGB A1C [address] [place] 07/25/2019 Sy Bosch MD LABORATORY Final Result [facility] [place] [address] [address], [place] [phone] from Last 3 Months or Most Recently Relevant to Health Maintenance Insurance MED REPLACE AETNA Care Teams Informatica Mdm Developer Relationship Specialty Start Date End Date Mohsen Muse MD [address] [place] [address] PCP - General INTERNAL MEDICINE 07/25/19
--- OUTSIDE RECORDS SUMMARY | 2025-04-14 15:35 | XMS_ITS | Encounter Summary ---
Author Organization [facility] Address [address] [place] [address] Care Team Providers Care Dialysis Chief Equipment Technician Name Role Phone Waldemar Galo DO Primary Care Provider [phone] Encounter Details Date Type Department Care Team (Latest Contact Info) Description 03/16/2025 Results Follow-Up [facility] Cardiology at [address] [place] [address] Bjorn Cullen MD [address] [facility] [address] [facility] [place] [address] Transthoracic Echo (TTE) Complete W Doppler/CF Social History Tobacco Use Types Packs/Day Years Used Date Smoking Tobacco: Former Cigarettes Q uit: 12/07/1971 Smokeless Tobacco: Never Alcohol Use Standard Drinks/Week Comments No 0 (1 standard drink = 0.6 oz pur e alcohol) Comments No Sex and Gender Information Value Date Recorded Sex Assigned at Not on file Legal Sex Female 8:45 AM SHIELD CLEANER Gender Identity Not on file Sexual Orientation Not on file documented as of this encounter Plan of Treatment Not on file documented as of this encounter Visit Diagnoses Not on filedocumented in this encounter Care Teams Dialysis Chief Equipment Technician Relationship Specialty Start Date End Date Waldemar Galo DO PCP - General Internal Medicine 02/18/25 documented as of this encounter
--- OUTSIDE RECORDS SUMMARY | 2025-04-14 15:35 | XMS_ITS | Encounter Summary ---
Author Organization [facility] Address [address] [place] [address] Care Team Providers Care Psychological Tests Sales Agent Name Role Phone Waldemar Galo DO Primary Care Provider [phone] Encounter Details Date Type Department Care Team (Late st Contact Info) Description 03/26/2025 Results Follow-Up [facility] Cardiology [address] [address] [place] [address] [place] [address] [address] [facility] [address] [place] [address], [place] [address] [place] [address] [place] Myocardial Amyloidosis Imaging SPECT/CT Social History Tobacco Use Types Packs/Day Years Used Date Smoking Tobacco: Former Cigarettes Q uit: 12/07/1971 Smokeless Tobacco: Never Alcohol Use Standard Drinks/Week Comments No 0 (1 standard drink = 0.6 oz pur e alcohol) Comments No Sex and Gender Information Value Date Recorded Sex Assigned at Not on file Legal Sex Female 8:45 AM MOBILE EQUIPMENT OPERATOR Gender Identity Not on file Sexual Orientation Not on file documented as of this encounter Plan of Treatment Not on file documented as of this encounter Visit Diagnoses Not on filedocumented in this encounter Care Teams Psychological Tests Sales Agent Relationship Specialty Start Date End Date Waldemar Galo DO PCP - General Internal Medicine 02/18/25 documented as of this encounter
== END 2025-04-14 13:57 | disposition home or self-care (01) ==
PROVIDERS: PCP Internal Medicine; Visit Provider Internal Medicine
DX: R91.1 Solitary pulmonary nodule (principal); R91.8 Other nonspecific abnormal finding of lung field
CPT/HCPCS: 71250

== ENCOUNTER 2025-05-18 03:18 | Day surgery (SDC) | payer MEDICARE, SELFPAY ==
--- NOTE | 2025-05-12 13:41 | PC.NURSE ---
Spoke with patient and daughter regarding medication Plavix. They both verbalized understanding that the last dose is to be taken on 05/13/2025 and the Endoscopist will instruct them when to restart after the procedure.
--- NOTE | 2025-05-12 13:42 | PC.NURSE ---
Pt describes that she does have alot of issues with constipation and needs to take a laxative in order to have a bm, we discussed a 2 day prep and she is in agreement. Instructions emailed to daughter and she will help her with the preps.
--- OUTSIDE RECORDS SUMMARY | 2025-05-18 03:21 | XMS_ITS | Clinical Summary ---
Author Organization [facility] Address [address] [place] [address] Care Team Providers Care Sustainable Development Policy Analyst Name Role Phone Mohsen Muse MD Primary Care Provider [phone] Allergies Active Allergy Reactions Criticality Noted Date [...] 0 05/07/20 19 Active vitamin D2, ergocalciferol, 89659 UNITS capsule 0 10/25/19 19 Active magnesium [...] ls (MULTIVITAMIN ADULT OR) Take according to [id number] package directions 04/17/20 07 Active Insulin Pen Needle (PEN NEEDLES) 31G X 8 MM Misc use 4 x a day (8mm pen needles) 04/27/20 09 Active sulfamethoxazol e-trimethoprim 800-160 MG tablet Take 1 tablet by mouth every 12 (twelve) hours. 07/07/20 Active zolpidem 5 MG tablet TAKE TO SLEEP STUDY 07/09/20 Active Active Problems Problem Noted Date Diagnosed Date History of stroke 05/21/2019 Complex sleep apnea syndrome 12/24/2018 PND (paroxysmal nocturnal dyspnea) 12/24/2018 Abnormal stress test 12/06/2018 Atypical chest pain 12/06/2018 Bilateral carotid bruits 12/06/2018 IBRAHIM (dyspnea on exertion) 12/06/2018 Hyperlipidemia associated with type 2 diabetes m ellitus 12/06/2018 Morbid obesity with body mass index of 45.0-49.9 in adult 12/06/2018 Nonrheumatic aortic valve stenosis 12/06/2018 Pulmonary HTN 12/06/2018 Abnormal mammography 12/04/2018 Vitamin D deficiency 04/22/2018 Infection due to yeast 04/02/2018 Hypertension associated with diabetes 11/01/2017 Thyroid disease 11/01/2017 Type 2 diabetes mellitus 11/01/2017 Morbid obesity 12/20/2013 Overview (07/25/2019): Overview: MORBID OBESITY Pure hypercholesterolemia 12/20/2013 Overview (07/25/2019): Overview: PURE HYPERCHOLESTEROLEM Hypertension 12/20/2013 Overview (07/25/2019): Overview: HYPERTENSION NOS Hypothyroidism 12/20/2013 Overview (07/25/2019): Overview: HYPOTHYROIDISM NOS Type 2 diabetes mellitus wit h other circulatory complication, with long-term current use of insulin 12/20/2013 Overview (07/25/2019): Overview: DMII WO CMP [...] Comments Blood Pressure 124/60 07/25/2019 8:13 AM LOAN SERVICING OFFICER Pulse 50 07/25/2019 8:13 AM LOAN SERVICING OFFICER Temperature 36.4 C (97.6 F) 07/25/2019 8:13 AM LOAN SERVICING OFFICER Respiratory Rate 20 07/25/2019 8:13 AM LOAN SERVICING OFFICER Oxygen Saturation 97% 07/25/2019 8:13 AM LOAN SERVICING OFFICER Inhaled Oxygen Concentration - - Weight 135.4 [...] 2022 COVID-19 Vaccine ( - season) 2025 Influenza Adult (#1) 2025 Meningococcal B Vaccine Aged Out No [...] Comments LIPID PANEL Routine 09/02/2019 11:58 AM LOAN SERVICING OFFICER Type 2 diabetes mellitus with other circulatory complication, with long-term current use of insulin HEMOGLOBIN, GLYCOSYLATED Routine 07/25/2019 Type 2 diabetes mellitus with microalbuminuria, with long-term current use of insulin from Last 3 Months or Most Recently Relevant to Health Maintenance Results * (ABNORMAL) LIPID PANEL (09/02/2019 11:58 AM LOAN SERVICING OFFICER) CHOLESTEROL 117 <200 mg/dL [facility] - [...] LDL-C. Darryn SANFORD et al. PETTY. 2013;310(19): 4093-0374 (http://education.[employer].Vertro/faq/YFZ510) CHOL/HDL RATIO 3.2 <5.0 (calc) [facility] NON HDL CHOLESTEROL 80 <130 mg/dL (calc) [facility] Comment: For patients with diabetes plus 1 major ASCVD risk factor, treating to a non-HDL-C goal of <100 mg/dL (LDL-C of <70 mg/dL) is considered a therapeutic option. 09/02/2019 11:5 8 AM LOAN SERVICING OFFICER 09/02/2019 11:58 AM LOAN SERVICING OFFICER Narrative [facility] - 09/03/2019 9:59 AM LOAN SERVICING OFFICER COLLECTION KIT GIVEN TO PATIENT. PATIENT ADVISED TO RETURN. Resulting Agency Comment Performing Organization Information: Site ID: [place] Name: [facility] Address: [address] [place] [address] Director: Darian Singer D.O., MPH Sy Bosch MD LABORATORY Final Result [facility] * HEMOGLOBIN, GLYCOSYLATED (07/25/2019) HGB A1C [address] [place] 07/25/2019 Sy Bosch MD LABORATORY Final Result Performing Organization Address [facility]/ZIP Co de Phone Number [address] [place] [address] [address], from Last 3 Months or Most Recently Relevant to Health Maintenance Insurance MED REPLACE AETNA Care Teams Sustainable Development Policy Analyst Relationship Specialty Start Date End Date Mohsen Muse MD [address] [place] [address] PCP - General INTERNAL MEDICINE 07/25/19
--- OUTSIDE RECORDS SUMMARY | 2025-05-18 03:21 | XMS_ITS | Encounter Summary ---
Author Organization [facility] Address [address] [place] [address] Care Team Providers Care Skin Care Therapist Name Role Phone Waldemar Galo DO Primary Care Provider [phone] Encounter Details Date Type Department Care Team (Latest Contact Info) Description 03/16/2025 Results Follow-Up [facility] Cardiology at [address] [place] [address] Bjorn Cullen MD [address] [facility] [address] [facility] [address] [place] [address] Transthoracic Echo (TTE) Complete W Doppler/CF Social History Tobacco Use Types Packs/Day Years Used Date Smoking Tobacco: Former Cigarettes Q uit: 12/07/1971 Smokeless Tobacco: Never Alcohol Use Standard Drinks/Week Comments No 0 (1 standard drink = 0.6 oz pur e alcohol) Comments No Sex and Gender Information Value Date Recorded Sex Assigned at Not on file Legal Sex Female 8:45 AM CLAMMER Gender Identity Not on file Sexual Orientation Not on file documented as of this encounter Plan of Treatment Not on file documented as of this encounter Visit Diagnoses Not on filedocumented in this encounter Care Teams Skin Care Therapist Relationship Specialty Start Date End Date Waldemar Galo DO PCP - General Internal Medicine 02/18/25 documented as of this encounter
--- OUTSIDE RECORDS SUMMARY | 2025-05-18 03:21 | XMS_ITS | Clinical Summary ---
Author Organization [facility] Address [address] [place] [address] Care Team Providers Care Manager Editorial Name Role Phone Waldemar Galo Primary Care Provider Allergies Active Allergy Reactions [...] Resolved Date Body mass index 40.0-44.9, adult ([facility]) 03/14/2022 04/18/2023 Encounters Date Type Department Care Team Description 04/08/[address] [facility] Medicine Ophthalmology [facility] [place] [address] Jennie Ameliauriel JASSO - Appointment/Referral 03/27/2025 Telephone [facility] [address] [facility] [address] [place] [address] Olayinka Rodriguez MD 03/26/2025 Results Follow-Up [facility] [address] [facility] [address] [place] [phone] Olayinka Rodriguez MD [place] Myocardial Amyloidosis Imaging SPECT/CT 03/25/2025 12:28 PM CDT - 03/25/2025 11:59 PM CDT Hospital Encounter [facility] [address] [place] [address] Discharge Disposition: Discharge to home or self care 03/25/2025 12:28 PM CDT - 03/25/2025 11:59 PM CDT Hospital Encounter [facility] [address] [place] [address] Abnormal echocardiogram Discharge Disposition: Discharge to home or self care 03/17/2025 Telephone [facility] [address] [place] [address] Olayinka Rodriguez MD 03/16/2025 Results Follow-Up [facility] at [address] [place] [address] Olayinka Rodriguez MD Transthoracic Echo (TTE) Complete W Doppler/CF 03/11/2025 11:15 AM CDT Ancillary Procedure [facility] [address] [place] [phone] Hypertension associated with diabetes (HCC); Nonrheumatic aortic valve stenosis; Pulmonary HTN (HCC) 02/18/2025 1:45 PM CDT Office Visit [facility] [address] [facility] [address] [place] [address] Olayinka Rodriguez MD Hyperlipidemia associated with type 2 diabetes mellitus (HCC) (Primary Dx); Hypertension associated with diabetes (HCC); Nonrheumatic aortic valve stenosis; Pulmonary HTN (HCC); Severe obesity (HCC) from Last 3 Months Surgical History Surgery Date Site/Laterality Comments CATARACT EXTRACTION Cataract extraction Medical History Medical History Date Comments Hypertension Hypertension Diabetes mellitus Diabetes Hyperlipidemia Hyperlipidemia Hx Other Medical hysterectomy; C omments: [facility] 08/25/2016 - Malignant neoplasm of uterus (HCC) Cancer, uterine; Comments: [facility] 08/25/2016 - Disorder of thyroid Thyroid dise [...] on file Legal Sex Female 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 Dr. White also participated in the interpretation [...] Recommendations for Multimodality Imaging in Cardiac Amyloidosis (https://pubmed.ncbi.nlm.nih.gov/97722990/ and https://pubmed.ncbi.nlm.nih.gov/65243393/). Dr. White also participated in the interpretation [...] AM CDT Narrative 03/11/2025 4:57 PM CDT [facility] [address], [place] [address] [address], [place] [address] P:[phone] P:[phone] Echocardiographic Report Patient Name: WILVER TURK A : 1945 Study Date: 03/11/2025 11:47:18 AM Gender: F Reinsurance Claim Analyst: Sailaja Keane)([place]), [facility] Location: [facility] Provider: OLYAINKA RODRIGUEZ Height(Cm): 165 BSA: 2.15 Weight(Kg): 100.7 [...] FINDINGS: Interpretation Site: Exam was interpreted at [facility]. Left Ventricle: Normal left ventricular systolic function. [...] Procedure Note Olayinka Rodriguez MD - 03/11/2025 [facility] [address] [facility] [address], [place] [address] [address] [facility] [address], [place] [address] P:[phone] P:[phone] Echocardiographic Report Patient Name: WILVER TURK A : 1945 Study Date: 03/11/2025 11:47:18 AM Gender: F Reinsurance Claim Analyst: Sailaja Keane)([place]), [facility] Location: [place] Ref Provider: OLAYINKA RODRIGUEZ Height(Cm): [...] FINDINGS: Interpretation Site: Exam was interpreted at [facility]. Left Ventricle: Normal left ventricular systolic function. [...] signed by: Brenda Osman M.D. Yue Hines CHIEF TALENT OFFICER IMG MAMMO PROCEDURES Final R esult from Last 3 Months or Most Recently Relevant to Health Maintenance Insurance [facility] AETNA MEDICARE GOLD [id number] AETNA MEDICARE GOLD AETNA MEDICARE GOLD [facility] MEDICARE Address: [facility] [id number] [place] [id number] Care Teams Manager Editorial Relationship Specialty Start Date End Date Waldemar Galo DO PCP - General Internal Medicine 02/18/25
--- OUTSIDE RECORDS SUMMARY | 2025-05-18 03:21 | XMS_ITS | Encounter Summary ---
Author Organization [facility] Address [address] [place] [address] Care Team Providers Care Venetian Blind Cleaner Name Role Phone Waldemar Galo DO Primary Care Provider [phone] Encounter Details Date Type Department Care Team (Late st Contact Info) Description 03/26/2025 Results Follow-Up [facility]iology [address] [place] [phone] [place] [address] [place] [address] [address] [facility] [address] [facility] [place] [id number] [place] [address] [place] Myocardial Amyloidosis Imaging SPECT/CT Social History Tobacco Use Types Packs/Day Years Used Date Smoking Tobacco: Former Cigarettes Q uit: 12/07/1971 Smokeless Tobacco: Never Alcohol Use Standard Drinks/Week Comments No 0 (1 standard drink = 0.6 oz pur e alcohol) Comments No Sex and Gender Information Value Date Recorded Sex Assigned at Not on file 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
[2025-05-18 13:08] VITALS: BP 157/90; PULSE 68; RESP 18; TEMP 35.7; O2SAT 98; BMI 34.0
[2025-05-18] MEDS: LACTATED RINGERS 1,000 ML 150 ML IV CONT (13:46)
--- NOTE | 2025-05-18 14:17 | PM.HPGS ---
History of Present Illness History of Present Illness Consent: Risks, benefits, and alternatives have been discussed and questions answered. Patient agrees to proceed with procedure. Chief complaint: Screening Narrative: Sully Turk is a 79 year old female here for colonoscopy because constipation, last one years ago with polyp Review of Systems Review of Systems: All systems reviewed & are unremarkable except as noted in HPI and below PMFSH Past Medical History Medical History (Updated 05/18/25 @ 14:27 by Gilberto Nelson MD) Constipation Wheezing Type 2 diabetes mellitus with hyperglycemia Status post CVA Pulmonary nodules Preoperative examination Personal history of colonic polyps Other fatigue Other dorsalgia Mass of soft tissue of right upper extremity IBRAHIM (dyspnea on exertion) Dietary counseling and surveillance (04/05/17) Cough Chronic pain of left knee Atypical chest pain Multiple lung nodules on CT Family History Family History Father Hypertension Family history of diabetes mellitus in first degree relative Family history of thyroid disease Family history of cataracts Cerebrovascular accident Family history of chronic obstructive pulmonary disease Family history of lung disease Family history of congestive heart failure Family history of heart disease in male family member before age 55 Diabetes mellitus Sibling Hypertension Family history of atrial fibrillation Mother Family history of renal failure Patient's mother is Hypertension Cerebrovascular accident Family history of arthritis Family history of diabetes mellitus in first degree relative Family history of heart disease in male family member before age 55 Diabetes mellitus Social History Social History Smoking status: Former smoker Second hand tobacco smoke exposure: No Smoking end date: 08/06/70 Alcohol intake: never Lack of Transportation: No Lack of Food: Never True Current Housing: I Have Housing Concerned About Future Housing: No Difficulty Paying Gas/Electric Bills: No Difficulty Paying for Meds: No Currently Unemployed: No Education: High School Diploma/GED Difficulty w/ Childcare or Family Care: No Meds Home Medications and Allergies Home Medications ?Medication ?Instructions ?Recorded ?Confirmed ?Type carvedilol 12.5 mg tablet 12.5 mg PO Q12H 07/01/19 05/18/25 History furosemide 20 mg tablet (Lasix) 20 mg PO QAM 07/01/19 05/18/25 History isosorbide mononitrate 30 mg 30 mg PO DAILY 07/01/19 05/18/25 History tablet,extended release 24 hr melatonin 3 mg capsule PO 07/01/19 04/07/25 History ergocalciferol (vitamin D2) 1,250 50,000 unit PO WEEKLY #13 caps 09/09/21 05/18/25 Rx mcg (50,000 unit) capsule transparent dressings 3 1/2 X 6 #10 ea 12/20/22 04/07/25 Rx (Tegaderm) magnesium oxide 400 mg PO DAILY #90 tabs 06/14/23 05/18/25 Rx lisinopril 20 mg tablet 20 mg PO DAILY #100 tabs 01/21/24 05/18/25 Rx citalopram 10 mg tablet See Rx Instructions .Route 02/05/24 05/18/25 Rx .COMPLEX #90 tabs levothyroxine 125 mcg tablet See Rx Instructions .Route 02/05/24 05/18/25 Rx .COMPLEX #90 tabs clopidogrel 75 mg tablet (Plavix) 75 mg PO DAILY #90 tabs 02/12/24 05/18/25 Rx atorvastatin 40 mg tablet 40 mg PO DAILY #90 tabs 05/05/24 05/18/25 Rx folic acid 1 mg tablet 1 mg PO DAILY #90 tabs 05/05/24 05/18/25 Rx potassium chloride 20 mEq 40 meq (2 x 20 mEq) PO DAILY #180 05/05/24 05/18/25 Rx tablet,extended release tabs insulin regular human 100 unit/mL 1 sliding scale dose subcut 01/19/25 05/18/25 Rx injection solution (Novolin R USEASDIRECTD #10 mL Regular U-100 Insulin) bisacodyl PO PRN constipation 05/07/25 History Allergies Allergy/AdvReac Type Severity Reaction Status Date / Time adhesive tape Allergy Severe Rash Verified 05/18/25 13:19 latex Allergy Mild rash Verified 05/18/25 13:19 celecoxib Allergy Unknown unknown Verified 05/18/25 13:19 cephalexin Allergy Unknown unknown Verified 05/18/25 13:19 insulin glargine Allergy Unknown unknown Verified 05/18/25 13:19 Penicillins Allergy Unknown unknown Verified 05/18/25 13:19 pioglitazone Allergy Unknown unknown Verified 05/18/25 13:19 simvastatin Allergy Unknown unknown Verified 05/18/25 13:19 LOCAL RX. FROM ANTIBIOTIC Allergy Unknown unknown Uncoded 04/07/25 13:04 SHOT IN HIP Vital Signs Vital Signs - 24 hr 05/18/25 13:08 Temperature 96.2 F L Pulse Rate 68 Respiratory Rate 18 Blood Pressure 157/90 H Pulse Oximetry 98 Oxygen Delivery Room Air Exam Const: General: comfortable and no acute distress HENMT: Face/Nose/Sinus: Normal nares present Eyes: General: appearance normal, both eyes and all related structures Resp: Auscultation: clear to auscultation bilaterally Cardio: Rate: regular rate Rhythm: regular rhythm GI: Inspection: non-distended GI Palp: Yes Soft to palpation Skin: General skin exam: normal color Extrem: General: normal to inspection Psych: Mental Status: mental status grossly normal Assessment and Plan Assessment and plan (1) Constipation: Code(s): K59.00 - Constipation, unspecified Status: Acute Assessment and Plan: colonoscopy
--- NOTE | 2025-05-18 14:27 | S_PTH ---
PATIENT: Sully Turk LOC: [facility] [place]#:[id number] AGE/SX: 79/F ROOM: RE05/18/[address]: Gilberto Nelson MD : 1945 BED: DIS: 05/18/2025 SPEC #: [id number] RECD: 05/19/25 08:21 STATUS: PHIL CLEMENS #: [id number] JERICA: 05/18/25 14:[address]: Gilberto Nelson DEPT: [facility] Surgical RECD BY: Shawanda Guzman ENTERED: 05/19/25 08:21 SP TYPE: Surgical OTHR DR: Waldemar Galo DO Tissues: A - Colon Polypectomy Procedures: Hematoxylin and Eosin Stain Gross and Microscopic Level 4
[2025-05-18 14:28] VITALS: BP 110/40; PULSE 63; RESP 22; O2SAT 96
[2025-05-18 14:38] VITALS: BP 95/55; PULSE 61; RESP 22; O2SAT 94
[2025-05-18 14:58] VITALS: BP 136/57; PULSE 62; RESP 20; O2SAT 99
== END 2025-05-18 15:00 | disposition home or self-care (01) ==
PROVIDERS: PCP Internal Medicine; Referring Provider Nurse Practitioner; Visit Provider Internal Medicine Gastroenterology
PROC: 0DJD8ZZ Inspection of Lower Intestinal Tract, Via Natural or Artificial Opening Endoscopic (ICD-10-PCS; CPT 45378; principal; 2025-05-18 14:30)
DX: D12.2 Benign neoplasm of ascending colon (principal); K64.8 Other hemorrhoids; K57.30 Diverticulosis of large intestine without perforation or abscess without bleeding; E11.65 Type 2 diabetes mellitus with hyperglycemia; R53.83 Other fatigue; G89.29 Other chronic pain; M25.562 Pain in left knee; Z79.02 Long term (current) use of antithrombotics/antiplatelets; Z79.4 Long term (current) use of insulin; Z87.891 Personal history of nicotine dependence; Z86.79 Personal history of other diseases of the circulatory system; Z82.49 Family history of ischemic heart disease and other diseases of the circulatory system
CPT/HCPCS: 45385; 82948; 88305; J2704; J7120